=== PATIENT | female | born 1985 | race African-American/Black ===

== ENCOUNTER 2016-10-06 16:46 | Emergency (ER) | payer MEDICARE, MEDICAID ==
[~2016-10-06 16:46] MED LIST: LURA80 PO; TRAZ50TA12 PO
[2016-10-06] MEDS ORDERED: TERBUTALINE INJ 1 MG/ML AMP ONE (17:41)
[2016-10-06] MEDS ORDERED: TERBUTALINE INJ 1 MG/ML AMP SQ PRN (17:45)
[2016-10-06] MEDS: LACTATED RINGER'S 1000 ML INJ 1,000 ML IV SCH ×2 (17:57→18:34)
[2016-10-06] MEDS ORDERED: ONDANSETRON HCL 4 MG/2 ML VIAL IV ONE (18:00)
[2016-10-06 18:09] LABS: AMPHETAMINE, URINE NEG (NEG); BARBITURATES, URINE NEG (NEG); COCAINE, URINE NEG (NEG)
[2016-10-06 18:16] LABS: BACTERIA, URINE MOD /hpf; BLOOD, URINE NEG (NEG); COMMENT (UR) CULTURE INDICATED; CULTURE IF INDICATED CULTURE INDICATED; GLUCOSE,URINE NEG (NEG); KETONE, URINE NEG (NEG); NITRITE,URINE NEG (NEG); PH, URINE 6.5 (5.0-8.5); SQUAMOUS EPITHELIAL CELL URINE 3 /hpf (0-5); URINE COLOR YELLOW (YELLW/STRAW)
--- NOTE | 2016-10-06 18:29 | PD ---
HPI Chief Complaint contractions Date Seen: Oct 06, 2016 Travel History International Travel<30 Days: No Contact w/Intl Traveler<30Days: No History of Present Illness HPI Ms. Kraus is a 31 yo at 33 1/7 weeks who presents with complaint of contractions. Patient states that she is felt contractions for approximately 2 weeks, and they have gradually increased in intensity for approximately one week. Patient reports normal movement. Patient denies vaginal bleeding or loss of vaginal fluid. Patient's review of systems positive for multiple complaints throughout including shortness of breath, chest pain, headache, and visual changes; however, patient denies any recent changes in the symptoms recently. Patient reports that she has past medical history of schizoaffective disorder, bipolar disorder, PTSD, depression/anxiety when she took multiple medications including with 2 day trazodone prior to but quit these upon knowing she was . Patient also reports history of alcohol use, tobacco use, cocaine use, and marijuana use prior to and then approximately 3 months afternoon when she was , but states that she is since these substances and no longer uses any illicit drug, alcohol, or tobacco. She states she receives her care with Mehnaz Obrien. labs reviewed: no abnormalities with exception of positive urine culture; patient states she was treated. Para: 1 : 3 Miscarriage: 1 History Past Medical History Narrative Medical Schizoaffective disorder Bipolar disorder PTSD Depression Anxiety Obstetric History Obstetric History delivery in 2002 at term; patient reports indicated by arrest of descent Past Surgical History Narrative Surgical delivery in 2002 at term; patient reports indicated by arrest of descent Social History Narrative Social History Alcohol, tobacco, marijuana, cocaine prior during ; none currently Allergies-Medications (Allergen,Severity, Reaction): Coded Allergies: Haldol (Verified Allergy, Unknown, 06/12/16) Propofol (Verified Allergy, Unknown, 06/12/16) Vistaril (Verified Allergy, Unknown, 06/12/16) Zyprexa (Verified Allergy, Unknown, 06/12/16) Home Meds Active Scripts Trazodone 50 Mg Tab50 Mg PO HS #14 TAB Ref 0 Prov:Seven Hedrick MD 06/12/16 Lurasidone (Latuda)80 Mg Tab80 Mg PO WITH DINNER 15 Days Ref 1 Prov:Reji Camarillo MD 05/14/16 Review of Systems General / Constitutional: No: Fever, Chills Eyes: Blurred Vision (chronic throughout ) HENT: Headaches (chronic throughout ) Cardiovascular: Chest Pain or Discomfort (chronic throughout ) Respiratory: Short of Breath (chronic throughout ) Gastrointestinal: No: Vomiting Genitourinary: Urgency, Dysuria (mild, recent) Physical Exam BP 138/88 HR 83 RR 16 T 98 Narrative GENERAL: Well-nourished, well-developed patient. SKIN: Warm and dry. HEAD: Normocephalic and atraumatic. EYES: No scleral icterus. No injection or drainage. ENT: No nasal drainage noted. Mucous membranes pink. Airway patent. NECK: Supple, trachea midline. No JVD. CARDIOVASCULAR: Regular rate and rhythm without murmurs RESPIRATORY: CTAB, normal rate ABDOMEN/GI: Abdomen soft, non-tender, bowel sounds present, no rebound, no guarding Gravid GENITOURINARY: External Genitalia: intact and normal in appearance Uterine Contractions: intermittent - q 5 min on EFM EXTREMITIES: No cyanosis or edema. NEUROLOGICAL: Awake and alert. Motor and sensory function grossly within normal limits. FHT's: Category: 1 Baseline: 150 Reactive: Y Variability: Mod Decels: None Data Data Vital Signs Reviewed: Yes Orders Vital Signs (Adult) .ON ADMISSION (10/06/16 17:34) ^ Labor Status (10/06/16 17:34) Urinalysis - C+S If Indicated (10/06/16 17:34) Fibronectin (10/06/16 17:34) Lactated Ringer's 1000 Ml Inj (Lr 1000 M (10/06/16 17:34) Ondansetron Inj (Zofran Inj) (10/06/16 18:00) Ob/Psych Drug Screen, Urine (10/06/16 17:34) Terbutaline Inj (Brethine Inj) (10/06/16 17:45) Fentanyl Inj (Fentanyl Inj) (10/06/16 18:00) Terbutaline Inj (Brethine Inj) (10/06/16 17:41) MDM Medical Record Reviewed: Yes Narrative Course / MDM 31 yo at 33 1/7 weeks -Contractions q 5 minutes -Cat 1 rhythm -Tobacco abuse, alcohol abuse, cocaine abuse, and marijuana abuse during Plan: -Will check FFN -Continue to monitor EFM -Will attempt tocolysis with 1 L IVF, Terbutaline 0.25mg x1, and Fentanyl 50mcg -UA ordered -UDS ordered Interval History: FFN negative Godwin Knowles MD R2 Oct 06, 2016 18:29
--- NOTE | 2016-10-06 19:16 | PD ---
History of Present Illness Date Seen: Oct 06, 2016 Time Seen: 17:40 History of Present Illness 33 wk IUP PCS c/o CTXs , no bleeding or SROM , FHR reactive , CTXs seen on monitor , FFN neg , UA neg , cx closed high , given IVF , SQ terb and 1 dose of IV fentanyl , this effectively stopped CTXs and pt was able to be discharged home to bedrest , po fluids , tylenol Willian Quigley II, MD Oct 06, 2016 19:16
[2016-10-06 20:24] VITALS: RESP 18
--- NOTE | 2016-10-07 09:06 | PD ---
HPI Travel History International Travel<30 Days: No Contact w/Intl Traveler<30Days: No Known Affected Area: No Allergies-Medications (Allergen,Severity, Reaction): Coded Allergies: Haldol (Verified Allergy, Unknown, 06/12/16) Propofol (Verified Allergy, Unknown, 06/12/16) Vistaril (Verified Allergy, Unknown, 06/12/16) Zyprexa (Verified Allergy, Unknown, 06/12/16) Home Meds Active Scripts Trazodone 50 Mg Tab50 Mg PO HS #14 TAB Ref 0 Prov:Seven Hedrick MD 06/12/16 Lurasidone (Latuda)80 Mg Tab80 Mg PO WITH DINNER 15 Days Ref 1 Prov:Reji Camarillo MD 05/14/16 Physical Exam Vital Signs Date Time Temp Pulse Resp B/P Pulse Ox O2 Delivery O2 Flow Rate FiO2 10/06/16 20:24 18 Narrative GENERAL: Well-nourished, well-developed patient. SKIN: Warm and dry. HEAD: Normocephalic and atraumatic. EYES: No scleral icterus. No injection or drainage. ENT: No nasal drainage noted. Mucous membranes pink. Airway patent. NECK: Supple, trachea midline. No JVD. CARDIOVASCULAR: Regular rate and rhythm without murmurs, gallops, or rubs. RESPIRATORY: Breath sounds equal bilaterally. No accessory muscle use. BREASTS: Bilateral exam showed no masses , no retractions, no nipple discharge. ABDOMEN/GI: Abdomen soft, non-tender, bowel sounds present, no rebound, no guarding Gravid to [-] weeks size Fundal Height: [-] GENITOURINARY: External Genitalia: intact and normal in appearance BUS glands: [-] Cervix: [-] Dilatation: [-] Effacement: [-] Station: [-] Presentation: [-] Membranes: [intact or ruptured] Uterine Contractions: [-] FHT's: Category: [-] Baseline: [-] Reactive: [-] Variability: [-] Decels: [-] EXTREMITIES: No cyanosis or edema. BACK: Nontender without obvious deformity. No CVA tenderness. NEUROLOGICAL: Awake and alert. Motor and sensory grossly within normal limits. Five out of 5 muscle strength in all muscle groups. Normal speech. Data Data Orders Vital Signs (Adult) .ON ADMISSION (10/06/16 17:34) ^ Labor Status (10/06/16 17:34) Urinalysis - C+S If Indicated (10/06/16 17:34) Fibronectin (10/06/16 17:34) Lactated Ringer's 1000 Ml Inj (Lr 1000 M (10/06/16 17:34) Ondansetron Inj (Zofran Inj) (10/06/16 18:00) Ob/Psych Drug Screen, Urine (10/06/16 17:34) Terbutaline Inj (Brethine Inj) (10/06/16 17:45) Fentanyl Inj (Fentanyl Inj) (10/06/16 18:00) Terbutaline Inj (Brethine Inj) (10/06/16 17:41) Ur Bath Salts (10/06/16 17:25) Ur Heroin (10/06/16 17:25) Ur K2 Spice (10/06/16 17:25) Ur Ecstasy (10/06/16 17:25) Ur Methadone (10/06/16 17:25) Phencyclidine Urine (Pcp) (10/06/16 17:25) Urine Culture (10/06/16 17:25) Labs Laboratory Tests Test 10/06/16 10/06/16 17:25 17:40 Urine Color YELLOW Urine Turbidity HAZY Urine pH 6.5 Urine Specific [place] 1.012 Urine Protein NEG Urine Glucose (UA) NEG Urine Ketones NEG Urine Occult Blood NEG Urine Nitrite NEG Urine Bilirubin NEG Urine Urobilinogen LESS THAN 2.0 Urine Leukocyte Esterase NEG Urine RBC 1 Urine WBC 3 Urine Squamous Epithelial 3 Cells Urine Bacteria MOD Microscopic Urinalysis Comment CULTURE INDICATED Urine Opiates Screen NEG Urine Barbiturates Screen NEG Urine Amphetamines Screen NEG Urine Benzodiazepines Screen NEG Urine Cocaine Screen NEG Urine Cannabinoids Screen NEG Fibronectin NEGATIVE Date/Time Procedure Status Source Growth 10/06/16 17:25 Urine Culture Received Urine Clean Catch Pending MDM Interpretation(s) see previous note for details Diagnosis Diagnosis: Primary Impression: Abdominal pain affecting , antepartum Disposition: 01 DISCHARGE HOME Condition: Stable Patient Instructions: General Instructions, Movement (ED), Abdominal Pain in (ED), Urinary Tract Infection in (ED) Departure Forms: Tests/Procedures Willian Quigley II, MD Oct 07, 2016 09:06
[2016-10-12 13:50] LABS: BATH SALTS (MDPV) UR NEG (NEG); ECSTASY (MDMA) UR NEG (NEG); GABAPENTIN UR NEG (NEG); HEROIN (6-ACETYLMORPHINE) UR NEG (NEG); HYDROMORPHONE U NEG (NEG); K2 SPICE UR NEG (NEG); OBMETHADONE UR NEG (NEG); OXYCODONE (PERCODAN) NEG (NEG); PHENCYCLIDINE URINE NEG (NEG)
== END 2016-10-07 06:30 | disposition home or self-care (01) ==
LOC: HOBED 16:46
DX: O26.93 Pregnancy related conditions, unspecified, third trimester (principal); R10.30 Lower abdominal pain, unspecified; Z3A.33 33 weeks gestation of pregnancy; F25.9 Schizoaffective disorder, unspecified; F31.9 Bipolar disorder, unspecified; F43.10 Post-traumatic stress disorder, unspecified
CPT/HCPCS: 59025; 80307; 81001; 82731; 87086; 96361; 96372; 96374; 99284; G0481; J3010; J3105; J7120

== ENCOUNTER 2016-10-10 04:04 | Emergency (ER) | payer MEDICARE, MEDICAID ==
--- NOTE | 2016-10-10 05:23 | PD ---
HPI Chief Complaint Contractions Date Seen: Oct 10, 2016 Time Seen: 05:00 Travel History International Travel<30 Days: No Contact w/Intl Traveler<30Days: No Known Affected Area: No History of Present Illness HPI 31-year-old 3 para 1011 at 33-5/7 weeks' gestation who comes in stating that she was seen here on Wednesday and was having contractions and they have not resolved. Her visit on Wednesday included a negative fibronectin and stable cervical examination. She had received terbutaline and fentanyl at that time and was discharged home. The patient has a diffusely positive review of systems with a background history of schizoaffective disorder, bipolar disorder, PTSD, depression and anxiety. Para: 1 : 3 Miscarriage: 1 History Past Medical History Narrative Medical Schizoaffective disorder, bipolar disorder, PTSD, depression, anxiety Current medications: vitamin Past Surgical History Narrative Surgical Family History Family History: Negative Social History Alcohol Use: No Tobacco Use: No Substance Abuse: No (prepregnancy history includes alcohol tobacco, cocaine and marijuana) Allergies-Medications (Allergen,Severity, Reaction): Coded Allergies: Haldol (Verified Allergy, Unknown, 06/12/16) Propofol (Verified Allergy, Unknown, 06/12/16) Vistaril (Verified Allergy, Unknown, 06/12/16) Zyprexa (Verified Allergy, Unknown, 06/12/16) Home Meds Active Scripts Trazodone 50 Mg Tab50 Mg PO HS #14 TAB Ref 0 Prov:Seven Hedrick MD 06/12/16 Lurasidone (Latuda)80 Mg Tab80 Mg PO WITH DINNER 15 Days Ref 1 Prov:Reji Camarillo MD 05/14/16 Physical Exam Narrative GENERAL: Well-nourished, well-developed patient. SKIN: Warm and dry. HEAD: Normocephalic and atraumatic. EYES: No scleral icterus. No injection or drainage. ENT: No nasal drainage noted. Mucous membranes pink. Airway patent. NECK: Supple, trachea midline. No JVD. CARDIOVASCULAR: Regular rate and rhythm without murmurs, gallops, or rubs. RESPIRATORY: Breath sounds equal bilaterally. No accessory muscle use. ABDOMEN/GI: Abdomen soft, non-tender, bowel sounds present, no rebound, no guarding Gravid to [-] weeks size Fundal Height: [-] GENITOURINARY: External Genitalia: intact and normal in appearance BUS glands: [-] Cervix: [-] Dilatation: [Closed -] Effacement: [-Long] Station: [-] Presentation: [-] Membranes: [intact or ruptured] Uterine Contractions: [-] FHT's: Category: [1-] Baseline: [-] Reactive: [-Yes] Variability: [-] Decels: [-] EXTREMITIES: No cyanosis or edema. BACK: Nontender without obvious deformity. No CVA tenderness. NEUROLOGICAL: Awake and alert. Motor and sensory grossly within normal limits. Five out of 5 muscle strength in all muscle groups. Normal speech. Data Data Orders Vital Signs (Adult) .ON ADMISSION (10/10/16 05:02) ^ Labor Status (10/10/16 05:02) Fibronectin (10/10/16 05:02) Labs fibronectin is negative MDM Medical Record Reviewed: Yes Narrative Course / MDM Assessment: 33+ week gestation with Bledsoe Freedman contractions Plan: Discharge home with labor precautions Diagnosis Diagnosis: Primary Impression: 33 weeks gestation of Additional Impression: Bledsoe Freedman' contraction Disposition: DISCHARGE HOME Miller Dsouza MD Oct 10, 2016 05:23
== END 2016-10-10 07:03 | disposition home or self-care (01) ==
LOC: HOBED 04:04
DX: O47.9 False labor, unspecified (principal); Z3A.33 33 weeks gestation of pregnancy
CPT/HCPCS: 82731; 99284

== ENCOUNTER 2016-12-25 16:17 | Emergency (ER) | payer MEDICARE, MEDICAID ==
[~2016-12-25] VITALS: Ht 157.5 cm; Wt 68.0 kg
[2016-12-25 16:30] VITALS: BP 116/77; PULSE 87; RESP 16; TEMP 99.2; O2SAT 100
[2016-12-25 17:00] VITALS: BP 116/77; PULSE 82; RESP 16; O2SAT 97
--- NOTE | 2016-12-25 17:25 | PD ---
HPI . Vaginal bleeding Chief Complaint: Dental Coordinator Problem/Complaint Time Seen by Provider: 16:44 Travel History International Travel<30 days: No Contact w/Intl Traveler<30days: No Traveled to known affect area: No History of Present Illness HPI This patient presents by [facility] with several complaints. Her chief complaint is vaginal bleeding. She states that she is 9 weeks and that she has had irregular vaginal bleeding since that time. She states that her current episode bleeding started about a week ago. She is concerned because the bleeding has not stopped. She states that she was not placed on control following the of her baby. Her next complaint is seizures. She states that she has had a seizure disorder since age 3. She states that she is not currently the medications for seizures and does not really recall how long it has been since she's been on seizure medications. She states that she does not have a doctor currently to prescribe medications for her. She states that her last seizure was last night. She is also complaining with some right flank pain. She denies any dysuria, frequency or urgency of urination. She has not been running a fever. PFSH Past Medical History Bipolar Disorder: Yes Anxiety: Yes Depression: Yes Cancer: No Cardiovascular Problems: No Diabetes: No Endocrine: No Gastrointestinal Disorders: Yes Genitourinary: No Headaches: No Immune Disorder: No Musculoskeletal: No Neurologic: No Psychiatric: Yes (Hx of treatment for Bipolar Disorder) Reproductive: No Respiratory: No Immunizations Current: Yes Schizophrenia: Yes Seizures: No Ulcer: Yes ?: Not Past Surgical History Section: Yes Social History Alcohol Use: Yes (BEER) Tobacco Use: Yes (1/2 PPD) Substance Use: Yes (Cocaine and marijuana) Allergies-Medications (Allergen,Severity, Reaction): Coded Allergies: Haldol (Verified Allergy, Unknown, 12/25/16) Propofol (Verified Allergy, Unknown, 12/25/16) Vistaril (Verified Allergy, Unknown, 12/25/16) Zyprexa (Verified Allergy, Unknown, 12/25/16) Reported Meds & Prescriptions Reported Meds & Active Scripts Active Trazodone (Trazodone HCl) 50 Mg Tab 50 Mg PO HS Latuda (Lurasidone) 80 Mg Tab 80 Mg PO WITH DINNER 15 Days Review of Systems Except as stated in HPI: all other systems reviewed are Neg General / Constitutional: No: Fever, Chills HENT: No: Headaches Genitourinary: Positive: Flank Pain, Vaginal Bleeding Neurologic: Positive: Seizures Psychiatric: Positive: Disorder of Thought Physical Exam Narrative GENERAL: This patient is histrionic appearing. SKIN: Warm and dry. HEAD: Atraumatic. Normocephalic. EYES: Pupils equal and round. Extraocular movements are intact. ENT: No nasal bleeding or discharge. Mucous membranes pink and moist. NECK: Trachea midline. Neck is supple. CARDIOVASCULAR: Regular rate and rhythm. RESPIRATORY: No accessory muscle use. GASTROINTESTINAL: Abdomen soft, non-tender, nondistended. : She is wearing a pad which is soaked. She is malodorous. There is moderate blood in the vaginal vault consistent with a menstrual cycle. There is no cervical motion tenderness or adnexal tenderness. MUSCULOSKELETAL: No obvious deformities. No edema. NEUROLOGICAL: Awake and alert. No obvious cranial nerve deficits. Motor grossly within normal limits. Normal speech. PSYCHIATRIC: Mildly histrionic. Judgment poor. Data Data Last Documented VS Vital Signs Date Time Temp Pulse Resp B/P Pulse Ox O2 Delivery O2 Flow Rate FiO2 12/25/16 16:30 99.2 87 16 116/77 100 Orders Complete Blood Count With Diff (12/25/16 16:54) Gc And Chlamydia Pcr (12/25/16 16:54) Wet Prep Profile (12/25/16 16:54) Urinalysis - C+S If Indicated (12/25/16 16:54) Ed Urine Pregnancytest Poc (12/25/16 16:54) Labs Laboratory Tests Test 12/25/16 16:50 White Blood Count 7.9 TH/MM3 Red Blood Count 4.10 MIL/MM3 Hemoglobin 12.7 GM/DL Hematocrit 39.4 % Mean Corpuscular Volume 95.9 FL Mean Corpuscular Hemoglobin 31.0 PG Mean Corpuscular Hemoglobin 32.4 % Concent Red Cell Distribution Width 14.3 % Platelet Count 246 TH/MM3 Mean Platelet Volume 7.5 FL Neutrophils (%) (Auto) 65.4 % Lymphocytes (%) (Auto) 20.9 % Monocytes (%) (Auto) 11.2 % Eosinophils (%) (Auto) 1.9 % Basophils (%) (Auto) 0.6 % Neutrophils # (Auto) 5.2 TH/MM3 Lymphocytes # (Auto) 1.6 TH/MM3 Monocytes # (Auto) 0.9 TH/MM3 Eosinophils # (Auto) 0.2 TH/MM3 Basophils # (Auto) 0.0 TH/MM3 CBC Comment DIFF FINAL Differential Comment Urine Color YELLOW Urine Turbidity CLEAR Urine pH 5.5 Urine Specific [place] 1.029 Urine Protein 30 mg/dL Urine Glucose (UA) NEG mg/dL Urine Ketones NEG mg/dL Urine Occult Blood MOD Urine Nitrite NEG Urine Bilirubin NEG Urine Urobilinogen 2.0 MG/DL Urine Leukocyte Esterase NEG Urine RBC 19 /hpf Urine WBC 2 /hpf Urine Squamous Epithelial <1 /hpf Cells Urine Mucus FEW /lpf Microscopic Urinalysis Comment CULT NOT INDICATED MDM Medical Decision Making Medical Screen Exam Complete: Yes Emergency Medical Condition: Yes Medical Record Reviewed: Yes (medical history includes schizoaffective disorder , bipolar disorder, PTSD. She is homeless.) Differential Diagnosis Differential diagnosis of vaginal bleeding includes but is not limited to dysfunctional uterine bleeding, normal menstrual cycle, ectopic , spontaneous AB, PID. Narrative Course This patient presents with multiple complaints. However, her chief complaint is vaginal bleeding. I have ordered a CBC to check her blood count. A UA and test also been ordered. I have done a wet prep and a GC chlamydial DNA probe. I suspect that this patient's seizure disorder is related to her mood disorder. test is negative. UA has no evidence of infection. CBC Diagram 12/25/16 16:50 The history, exam, diagnostic testing, and current condition do not suggest any significant pathology to warrant further testing, continued ED treatment, admission, or surgical evaluation at this point. The patient's condition is stable and appropriate for discharge. Diagnosis Primary Impression: Vaginal bleeding Additional Impression: Schizoaffective disorder, bipolar type Disposition: 01 DISCHARGE HOME Condition: Stable Nae Jaimes MD Dec 25, 2016 17:25
[2016-12-25 17:36] LABS: AUTOMATED NEUTROPHIL # 5.2 TH/MM3 (1.8-7.7); BASOPHIL % 0.6 % (0.0-2.0); EOSINOPHIL # 0.2 TH/MM3 (0-0.4); EOSINOPHIL % 1.9 % (0.0-4.0); HEMATOCRIT 39.4 % (35.0-46.0); HEMO FLAGS DIFF FINAL; LYMPH % 20.9 % (9.0-44.0); LYMPHOCYTE # 1.6 TH/MM3 (1.0-4.8); MEAN CELL VOLUME 95.9 FL (80.0-100.0); MEAN CORPUSCULAR HGB CONC 32.4 % (32.0-36.0); MONO % 11.2 % (0.0-8.0); NEUT % 65.4 % (16.0-70.0); PLATELET COUNT 246 TH/MM3 (150-450); RED CELL DISTRIBUTION WIDTH 14.3 % (11.6-17.2); WHITE BLOOD COUNT 7.9 TH/MM3 (4.0-11.0)
[2016-12-25 17:50] LABS: BLOOD, URINE MOD (NEG); COMMENT (UR) CULT NOT INDICATED; CULTURE IF INDICATED CULT NOT INDICATED; GLUCOSE,URINE NEG (NEG); KETONE, URINE NEG (NEG); MUCUS URINE FEW /lpf (OCC); NITRITE,URINE NEG (NEG); PH, URINE 5.5 (5.0-8.5); SQUAMOUS EPITHELIAL CELL URINE <1 /hpf (0-5); URINE COLOR YELLOW (YELLW/STRAW)
[2016-12-25 19:02] LABS: CHLAMYDIA PCR NOT DETECTED (NOT DETECT); NEISSERIA PCR NOT DETECTED (NOT DETECT)
== END 2016-12-25 19:32 | disposition home or self-care (01) ==
LOC: NEPC 16:17
DX: N93.9 Abnormal uterine and vaginal bleeding, unspecified (principal); F25.0 Schizoaffective disorder, bipolar type
CPT/HCPCS: 81001; 84703; 85025; 87210; 87491; 87591; 99283